=== PATIENT | female | born 1985 | race Caucasian/White ===

== ENCOUNTER 2017-07-07 12:55 | Emergency (ER) | payer MEDICAID ==
--- NOTE | 2017-07-07 13:00 | Emergency Department Record ---
History of Present Illness - General Chief complaint: Female Urogenital Problem Stated complaint: POSSIBLE UTI Time Seen by Provider: 07/07/17 12:57 Source: Patient Mode of Arrival: Ambulatory Limitations: No limitations - History of Present Illness Initial comments: 31 yo female presents with about 2 days of urinary frequency and burning. She denies any fever. She has had UTI's in the past. No history of renal stones. No fever, chills, nausea or vomiting. No history of bladder or kidney surgery. No other current symptoms. MD Complaint: Dysuria -: Days(s) (2) Radiation: Suprapubic Severity: Moderate Quality: Aching, Other (buring) Consistency: Constant Improves with: None Worsens with: Urination Associated Symptoms: Denies other symptoms - Related Data Previous Rx's Medication Instructions Recorded Cephalexin [Keflex] 500 mg PO TID #21 cap 07/07/17 Fluconazole [Diflucan] 150 mg PO ONCE #2 tab 07/07/17 Allergies Allergy/AdvReac Type Severity Reaction Status Date / Time Penicillins Allergy Intermediate HIVES Unverified 05/19/16 08:27 Review of Systems Constitutional: Denies: Chills, Fever, Malaise, Weakness Eyes: Denies: Eye discharge ENT: Denies: Congestion, Throat pain Respiratory: Denies: Cough, Dyspnea, Hemoptysis Cardiovascular: Denies: Chest pain, Palpitations, Syncope Endocrine: Denies: Fatigue Gastrointestinal: Reports: As per HPI, Abdominal pain. Denies: Constipation, Diarrhea, Hematemesis, Hematochezia, Melena, Nausea, Vomiting Genitourinary: Reports: Dysuria, Frequency, Urgency. Denies: Abnormal menses, Discharge, Hematuria, Incontinence Musculoskeletal: Denies: Arthralgia, Joint swelling, Myalgia Skin: Denies: Bruising, Change in color, Rash Neurological: Denies: Headache, Numbness, Weakness Psychiatric: Denies: Anxiety Hematological/Lymphatic: Denies: Blood Clots, Easy bleeding, Easy bruising, Swollen glands Past Medical History - SOCIAL HISTORY Smoking Status: Former smoker - RESPIRATORY Hx Sleep Apnea: Yes - CARDIOVASCULAR Hx Cardio Disorders: No - NEURO Hx Neuro Disorders: No - GI Hx Reflux: Yes Hx Rectal Bleeding: Yes Hx Ulcer: Yes - Hx Genitourinary Disorders: Yes Hx UTI: Yes - ENDOCRINE Hx Diabetes: No Hx Thyroid Disease: No - MUSCULOSKELETAL Comment:: being worked up for lupus - PSYCH Hx Psych Problems: No - HEMATOLOGY/ONCOLOGY Hx Bruising: Yes Family Medical History Hx Cancer: Grandparents Hx Heart Disease: Grandparents Physical Exam - General General Appearance: Alert, Oriented x3, Cooperative, No acute distress Limitations: No limitations - Head Head exam: Atraumatic, Normal inspection - Eye Eye exam: Normal appearance. negative: Conjunctival injection, Periorbital swelling - ENT ENT exam: Normal exam, Mucous membranes moist Ear exam: Normal external inspection Nasal Exam: Normal inspection Mouth exam: Normal external inspection - Neck Neck exam: Normal inspection - Respiratory Respiratory exam: negative: Respiratory distress - GI/Abdominal GI/Abdominal exam: Soft. negative: Tenderness - Rectal Rectal exam: Deferred - exam: Deferred - Extremities Extremities exam: Normal inspection - Back Back exam: Reports: Normal inspection, Full ROM. Denies: Muscle spasm, Rash noted, Tenderness - Neurological Neurological exam: Alert, Normal gait, Oriented X3 - Psychiatric Psychiatric exam: Normal affect, Normal mood - Skin Skin exam: Dry, Intact, Normal color, Warm Course - Reevaluation(s) Reevaluation #1: Well appearing UA provided by pt and sent 07/07/17 13:08 The UA was reviewed Negative HCG The UA is CW acute UTI 07/07/17 13:43 Disposition Disposition: Discharge Clinical Impression: Urinary tract infection Disposition: Home, Self-Care Condition: (1) Good Instructions: Urinary Tract Infection in Women (ED) Additional Instructions: Return if you have fever, pain, nausea, vomiting or any new concerns Prescriptions: Cephalexin [Keflex] 500 mg PO TID #21 cap Fluconazole [Diflucan] 150 mg PO ONCE #2 tab Forms: Patient Portal Access Time of Disposition: 13:09 Quality - Quality Measures Quality Measures: N/A - Blood Pressure Screening Does Patient Have Any of the Following: No Blood Pressure Classification: Pre-Hypertensive BP Reading Systolic Measurement: 127 Diastolic Measurement: 77 Screening for High Blood Pressure: < Pre-Hypertensive BP, F/U Documented > [ G8950] Pre-Hypertensive Follow-up Interventions: Referral to alternative/primary care provider.
[2017-07-07 13:35] LABS: URINE APPEARANCE CLEAR; URINE BILIRUBIN NEGATIVE (NEGATIVE); URINE BLOOD NEGATIVE (NEGATIVE); URINE COLOR YELLOW; URINE GLUCOSE (UA) NEGATIVE (NEGATIVE); URINE KETONE NEGATIVE (NEGATIVE); URINE LEUKOCYTE ESTERASE TRACE (NEGATIVE); URINE NITRITE POSITIVE (NEGATIVE); URINE PROTEIN NEGATIVE (NEGATIVE); URINE UROBILINOGEN 0.2 E.U./dL (0.20 - 1.00)
[2017-07-07 13:38] LABS: URINE SQUAMOUS EPITHELIAL CELL 0 - 2 /hpf
[2017-07-07 13:39] LABS: URINE BACTERIA FEW
[2017-07-07 13:40] LABS: HCG,QUALITATIVE URINE NEGATIVE (NEGATIVE)
[2017-07-07] MEDS ORDERED: CEPHALEXIN 500 MG CAPSULE PO STA (13:42)
== END 2017-07-07 13:50 | disposition home or self-care (01) ==
LOC: ER 12:55
DX: N39.0 Urinary tract infection, site not specified (principal)
CPT/HCPCS: 81001; 81025; 99282

== ENCOUNTER 2019-02-14 20:54 | Emergency (ER) | payer MEDICAID ==
[2019-02-14] MEDS ORDERED: ERTAPENEM SODIUM 1 G in 0.9 % SODIUM CHLORIDE 100ML 100 ML IVPB ONE (21:36)
[2019-02-14] MEDS ORDERED: KETOROLAC 30 MG/ML VIAL IVP ONE (21:36)
--- NOTE | 2019-02-14 21:45 | Emergency Department Record ---
History of Present Illness - General Chief complaint: Abscess Stated complaint: RECTAL ABCESS Time Seen by Provider: 02/14/19 21:00 Source: Patient Mode of Arrival: Ambulatory Limitations: No limitations - History of Present Illness Initial comments: 33 yo female presents to ED for evaluation of pain, swelling, and drainage from the right perineal region that began approximately 3-4 days ago. 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 Patient called her surgeon (Dr. Dickson) who no-longer takes her insurance. Patient reports pain to the affected area, denies fevers/chills, nausea/vomiting symptoms. Patient does report constipation symptoms. MD complaint: Abscess/boil Onset/Timin -: Days(s) Hx Tetanus Toxoid Vaccination: Yes Patient Tetanus UTD (within 5 yrs): Yes Location: Buttocks Severity: Moderate Severity scale (1-10): 7 Quality: Sharp Consistency: Constant Improves with: Other Worsens with: Rest Context: None Associated symptoms: Chills Treatments Prior to Arrival: Attempted to drain pus at home, Bandages - Related Data Home Medications Medication Instructions Recorded Confirmed Last Taken Ibuprofen 800 mg PO ASDIR 02/14/19 02/14/19 Unknown Previous Rx's Medication Instructions Recorded Amoxicillin/Potassium Clav 1 each PO BID #20 tablet 02/14/19 [Augmentin 875Mg/125Mg] Polyethylene Glycol 3350 [Miralax] 1 packet PO DAILY #15 packet 02/14/19 Allergies Allergy/AdvReac Type Severity Reaction Status Date / Time Penicillins Allergy Intermediate HIVES Verified 02/14/19 21:25 Travel Screening - Travel/Exposure Within Last 30 Days Have you traveled within the last 30 days?: No - Travel/Exposure Within Last Year Have you traveled outside the [place] in the last year?: No - Additonal Travel Details Have you been exposed to anyone with a communicable illness?: No - Travel Symptoms Symptom Screening: None Review of Systems Constitutional: Denies: Chills, Fever, Malaise, Night sweats Eyes: Denies: Eye discharge, Eye pain ENT: Denies: Congestion, Ear pain, Epistaxis Respiratory: Denies: Cough, Dyspnea Cardiovascular: Denies: Chest pain, Dyspnea on exertion Endocrine: Denies: Fatigue, Heat or cold intolerance Gastrointestinal: Denies: Abdominal pain, Nausea, Vomiting Genitourinary: Denies: Incontinence, Retention Musculoskeletal: Denies: Arthralgia, Back pain Skin: Reports: Other (Abscess to the ronni-rectal/perineal region). Denies: Bruising, Change in color Neurological: Denies: Abnormal gait, Confusion, Headache, Seizure Psychiatric: Denies: Anxiety Hematological/Lymphatic: Denies: Anemia, Blood Clots Past Medical History - SOCIAL HISTORY Smoking Status: Former smoker - RESPIRATORY Hx Respiratory Disorders: Yes Hx Sleep Apnea: Yes - CARDIOVASCULAR Hx Cardio Disorders: No - NEURO Hx Neuro Disorders: No - GI Hx GI Disorders: Yes Hx Reflux: Yes Hx Rectal Bleeding: Yes Hx Ulcer: Yes - Hx Genitourinary Disorders: Yes Hx UTI: Yes - ENDOCRINE Hx Diabetes: No Hx Thyroid Disease: No - MUSCULOSKELETAL Hx Musculoskeletal Disorders: Yes Comment:: being worked up for lupus - PSYCH Hx Psych Problems: No - HEMATOLOGY/ONCOLOGY Hx Hematology/Oncology Disorders: Yes Hx Bruising: Yes Family Medical History Any Significant Family History?: No Hx Cancer: Grandparents Hx Heart Disease: Grandparents Physical Exam - General General Appearance: Alert, Oriented x3, Cooperative, Moderate distress Limitations: No limitations - Head Head exam: Atraumatic, Normocephalic, Normal inspection Head exam detail: negative: Abrasion, Contusion, Michale's sign, General tenderness, Hematoma, Laceration - Eye Eye exam: Normal appearance. negative: Conjunctival injection, Periorbital swelling, Periorbital tenderness, Scleral icterus - ENT Ear exam: negative: Auricular hematoma, Auricular trauma Nasal Exam: negative: Active bleeding, Discharge, Dried blood, Foreign body Mouth exam: negative: Drooling, Laceration, Muffled voice, Tongue elevation - Neck Neck exam: Normal inspection. negative: Meningismus, Tenderness - Respiratory Respiratory exam: Normal lung sounds bilaterally. negative: Rales, Respiratory distress, Rhonchi, Stridor - Cardiovascular Cardiovascular Exam: Regular rate, Normal rhythm, Normal heart sounds - GI/Abdominal GI/Abdominal exam: Soft. negative: Rebound, Rigid, Tenderness - Rectal Rectal exam: Other (Large hemorrhoid to the posterior-rectal region, mild fluctuance to the right perineal region, no induration present.) - exam: Deferred - Extremities Extremities exam: Normal inspection. negative: Pedal edema, Tenderness - Back Back exam: Denies: CVA tenderness (R), CVA tenderness (L) - Neurological Neurological exam: Alert, Normal gait, Oriented X3 - Psychiatric Psychiatric exam: Normal affect, Normal mood - Skin Skin exam: Normal color. negative: Abrasion Type of lesion: negative: abrasion Course Vital Signs 02/14/19 21:08 Temperature 98.4 F Pulse Rate [ 90 Pulse Ox Probe] Respiratory 20 Rate Blood Pressure 135/82 [Left Arm] Pulse Ox 99 - Reevaluation(s) Reevaluation #1: 02/14/19 22:17 Laboratory studies were reviewed and are grossly unremarkable for an acute process except for the following: WBC 16.2. negative. Patient is going for CT imaging of the pelvis at this time. Reevaluation #2: 02/14/19 23:16 CT Pelvis with IV contrast: Soft-tissue abscess subcutaneous region of the right gluteal fold 2.3 x 1.5 cm 3.0 Cm left ovarian cyst. Patient was reassessed, reports that her pain symptoms are greatly improved (3/10). Patient appears stable for discharge on Augmentin and Miralax as directed. Case was also d/w Dr. Jacobo, will see the patient Sunday morning in the [facility] at 8:00 AM. Medical Decision Making - Lab Data Result diagrams: 02/14/19 21:44 02/14/19 21:44 Disposition Disposition: Discharge Clinical Impression: Ronni-rectal abscess Disposition: Home, Self-Care Condition: (2) Stable Instructions: Rectal Abscess (ED) Additional Instructions: Return to ED if your symptoms worsen or if you have any concerns. Augmentin and Miralax as directed. Follow-up with Dr. Jacobo Sunday Morning, 8:00 AM in the [facility] as directed. Prescriptions: Amoxicillin/Potassium Clav [Augmentin 875Mg/125Mg] 1 each PO BID #20 tablet Polyethylene Glycol 3350 [Miralax] 1 packet PO DAILY #15 packet Referrals: Lyndon Jacobo [DOCTOR OF OSTEOPATH] - [facility] [Provider Group] Forms: Patient Portal Access Time of Disposition: 23:20 Quality - Quality Measures Quality Measures: N/A - Blood Pressure Screening Does Patient Have Any of the Following: No Blood Pressure Classification: Normal BP Reading Systolic Measurement: 109 Diastolic Measurement: 54 Screening for High Blood Pressure: < Normal BP, F/U Not Required > [G8783]
[2019-02-14 21:51] LABS: ABSOLUTE NEUTROPHIL COUNT 13.68; HEMATOCRIT 36.2 % (35.0-47.0); HEMOGLOBIN 11.1 gm/dl (11.6-16.0); MEAN CELL VOLUME 85.6 fl (81-97); MEAN CORPUSCULAR HEMOGLOBIN 26.2 pg (27-33); MEAN CORPUSCULAR HGB CONC 30.7 g/dl (32-36); MEAN PLATELET VOLUME 9.3 fl (7.4-10.4); PLATELET COUNT 355 K/uL (130-400); RED BLOOD COUNT 4.23 M/uL (3.80-5.40); RED CELL DISTRIBUTION WIDTH 14.8 % (11.5-14.5); WHITE BLOOD COUNT W/O DIFF 16.2 K/uL (4.2-12.2)
[2019-02-14 22:04] LABS: BLOOD UREA NITROGEN 14 mg/dL (6-20)
[2019-02-14 22:05] LABS: CREATININE 0.7 mg/dL (0.5-0.9); EST GLOMERULAR FILTRATION RATE > 60 mL/min; TOTAL PROTEIN 7.3 g/dL (6.6-8.7)
[2019-02-14 22:07] LABS: GLUCOSE,RANDOM 110 mg/dL (74-109)
[2019-02-14 22:10] LABS: ALB/GLOB RATIO 1.2 (1.1-1.8); ALKALINE PHOSPHATASE 61 U/L (35-104); ALT/SGPT 16 U/L (<33); AST/SGOT 14 U/L (10.0-35.0)
--- NOTE | 2019-02-16 10:42 | CT SCAN REPORT ---
EXAM: CT SCAN PELVIS W CONTRAST HISTORY: PERIRECTAL DRAINAGE, HISTORY OF FISTULA. TECHNIQUE: Axial CT scan of the pelvis performed following IV contrast administration. Please see the medical record for IV contrast specifics. No oral contrast utilized at the referring physician's request. COMPARISON: No prior pelvis CT with which to compare. FINDINGS: There is a small umbilical hernia containing adipose tissue but no bowel. There is probably an approximately 3.2 cm left ovarian cyst present. This may be a dominant follicle, although is nonspecific. No free intraperitoneal air or free intraperitoneal fluid evident. Lower images down through the very low perineal region along the gluteal fold demonstrate an asymmetric ill-defined low-density collection on the right approximately 2.3 cm in AP, by 1.5 cm in transverse diameters and approximately 3.2 cm in craniocaudal length with a somewhat thick wall surrounding this. This likely represents a small abscess along the right gluteal fold in this region and correlation with physical exam is suggested. No actual air collection within this seen but it is difficult to determine if this may actually communicate with the region of the anus itself. IMPRESSION: 1. PROBABLE SMALL SUBCUTANEOUS ABSCESS SUPERFICIALLY ALONG THE MEDIAL ASPECT OF THE RIGHT GLUTEAL FOLD CLOSE TO THE REGION OF THE ANUS. 2. A 3.2 CM LOW-ATTENUATION MASS LEFT ADNEXA, NONSPECIFIC, ALTHOUGH PRESUMABLY A LEFT OVARIAN CYST. 3. SMALL UMBILICAL HERNIA CONTAINING ADIPOSE TISSUE BUT NO BOWEL. JOB NUMBER: [id number] MTDD
== END 2019-02-14 23:37 | disposition home or self-care (01) ==
LOC: ER 20:54
DX: K61.1 Rectal abscess (principal); Z87.891 Personal history of nicotine dependence
CPT/HCPCS: 72193; 80053; 84703; 85027; 96365; 96375; 99284; J1885